=== PATIENT | male | born 1975 | race Caucasian/White ===

== ENCOUNTER 2017-04-28 10:41 | Emergency (ER) | payer OTHER ==
[2017-04-28 10:49] VITALS: BP 144/91; PULSE 71; TEMP 98; BMI 33.0
--- NOTE | 2017-04-28 11:35 | PDOC ---
History of Present Illness - General Chief Complaint: Pain Stated Complaint: RT ANKLE PAIN Time Seen by Provider: 04/28/17 11:03 History Source: Patient Exam Limitations: No Limitations - History of Present Illness Initial Comments: 04/28/17 11:29 41 yr male with right ankle pain for one month on and off. Pt states he injured his ankle 3 yrs ago and he has always had on and off pain. Pt has no PMHX no allergies Lower Ext. Injury Location - Specific Injury Location Ankle: right no evidence of injury, right normal inspection, right normal range of motion, right soft tissue tenderness (medial malleoulus ) Past History - Past Medical History Allergies/Adverse Reactions: Allergies Allergy/AdvReac Type Severity Reaction Status Date / Time No Known Allergies Allergy Verified 04/28/17 10:49 Home Medications: Ambulatory Orders Naproxen [Naprosyn -] 500 mg PO BID PRN #14 tablet 04/28/17 Other medical history: NONE - Suicide/Smoking/Psychosocial Hx Smoking History: Never smoked Number of Cigarettes Smoked Daily: 5 'Breaking Loose' booklet given: 08/11/14 Hx Alcohol Use: No Drug/Substance Use Hx: No Substance Use Type: None Review of Systems - Review of Systems Able to Perform ROS?: Yes Is the patient limited Kiswahili proficient: No Constitutional: No: Symptoms Reported HEENTM: No: Symptoms Reported Respiratory: No: Symptoms reported Cardiac (ROS): No: Symptoms Reported ABD/GI: No: Symptoms Reported : No: Symptoms Reported Musculoskeletal: Yes: Symptoms Reported *Physical Exam - Vital Signs Last Vital Signs Temp Pulse Resp BP Pulse Ox 98.0 F 71 20 144/91 99 04/28/17 10:46 04/28/17 10:46 04/28/17 10:46 04/28/17 10:46 04/28/17 10:46 - Physical Exam General Appearance: Yes: Nourished, Appropriately Dressed HEENT: positive: EOMI, IGGY Respiratory/Chest: positive: Lungs Clear, Normal Breath Sounds Musculoskeletal: positive: Normal Inspection Extremity: positive: Normal Capillary Refill, Normal Inspection, Normal Range of Motion, Tender (medial maleolus right ankle no swelling nv intact). negative : Swelling Integumentary: positive: Normal Color, Dry, Warm Neurologic: positive: Fully Oriented, Alert, Normal Mood/Affect, Normal Response , Motor Strength 5/5 Medical Decision Making - Medical Decision Making 04/28/17 11:31 cc: right ankle pain , injury 3 yrs ago no recent trauma or injury *DC/Admit/Observation/Transfer Diagnosis at time of Disposition: Ankle pain Qualifiers: Chronicity: chronic Laterality: right Qualified Code(s): M25.571 - Pain in right ankle and joints of right foot - Discharge Dispostion Disposition: HOME Condition at time of disposition: Stable - Prescriptions Prescriptions: Naproxen [Naprosyn -] 500 mg PO BID PRN #14 tablet PRN Reason: Pain - Referrals Referrals: Izaiah Charles MD [Primary Care Provider] - Lucas Weller MD [Staff Physician] - - Patient Instructions Additional Instructions: follow with the orthopedist Dr. Weller or for follow up as you may need further evaluation by the specialist apply warm compresses to the area every 3hrs for 15 minutes take the naprosyn for pain as needed
== END 2017-04-28 11:42 | disposition home or self-care (01) ==
LOC: JERFT 10:41
DX: M25.571 Pain in right ankle and joints of right foot (principal); F17.210 Nicotine dependence, cigarettes, uncomplicated
CPT/HCPCS: 73610-TC-RT; 99281-25